=== PATIENT | male | born 1950 | race Caucasian/White ===

== ENCOUNTER 2022-05-18 21:38 | Emergency (ER) | payer OTHER ==
[~2022-05-18] VITALS: Ht 167.6 cm; Wt 70.8 kg
[~2022-05-18 21:38] MED LIST: AMOCLA875 PO; AMOX500 PO; ATOR40TA PO; Adult Low Dose81 MG PO; BP MED; CIPR500 PO; CLOP75 PO; DOXA2 PO; IBUP600 PO; LANS30EC PO; LISI20 PO; METO25ER PO; OMEP20ER PO; OXYACE5T PO; OXYB5 PO; SERT50 PO; TAMS.4ER PO; [UNRECOGNIZED DRUG - REMARK]
[2022-05-18 22:09] LABS: BASOPHILS ABSOLUTE AUTO 0.03 K/mm3 (0.00-0.23); BASOPHILS PERCENT AUTO 1 % (0-2); EOSINOPHILS ABSOLUTE AUTO 0.09 K/mm3 (0.00-0.68); EOSINOPHILS PERCENT AUTO 1 % (0-6); Hematocrit 40.9 % (37.0-53.0); Hemoglobin 13.8 g/dL (13.5-17.5); IMMATURE GRAN ABSOLUTE AUTO 0.01 K/mm3 (0.00-0.10); IMMATURE GRAN PERCENT AUTO 0 % (0-1); LYMPHOCYTES ABSOLUTE AUTO 1.71 K/mm3 (0.84-5.20); LYMPHOCYTES PERCENT AUTO 27 % (21-46); MONOCYTES ABSOLUTE AUTO 0.56 K/mm3 (0.16-1.47); MONOCYTES PERCENT AUTO 9 % (4-13); Mean Corpuscular HGB 33.8 pg (26.0-34.0); Mean Corpuscular HGB Conc 33.7 g/dL (31.5-36.5); Mean Corpuscular Volume 100 fL (80-100); Mean Platelet Volume 8.7 fL (9.1-12.4); NEUTROPHILS ABSOLUTE AUTO 4.03 K/mm3 (1.96-9.15); NEUTROPHILS PERCENT AUTO 63 % (41-73); Platelet Count 194 K/mm3 (150-400); Red Blood Cell Count 4.08 M/mm3 (4.30-5.90); White Blood Cell Count 6.43 K/mm3 (4.00-11.30)
[2022-05-18 22:29] LABS: Albumin, Blood 3.8 g/dL (3.4-5.0); Albumin/Globulin Ratio 1.2 (0.8-1.8); Bilirubin, Total 0.5 mg/dL (0.1-1.0); Bun/Creatinine Ratio 10.5 (12.0-20.0); Creatinine, Blood 0.67 mg/dL (0.60-1.20); Globulin, Blood 3.3 g/dL (2.2-4.0); Total Protein, Blood 7.1 g/dL (6.4-8.2)
== END 2022-05-18 23:55 | disposition home or self-care (01) ==
LOC: ER 21:38
PROVIDERS: Emergency Medicine
DX: R55 Syncope and collapse (principal); R07.89 Other chest pain; S09.90XA Unspecified injury of head, initial encounter; W19.XXXA Unspecified fall, initial encounter; I25.10 Atherosclerotic heart disease of native coronary artery without angina pectoris; I10 Essential (primary) hypertension; Z95.5 Presence of coronary angioplasty implant and graft; Z87.891 Personal history of nicotine dependence
CPT/HCPCS: 36415; 70450; 80053; 83880; 84484; 85025; 93005; 93010

== ENCOUNTER → 2022-11-03 | Outpatient (CLI) | payer OTHER | END | disposition home or self-care (01) | LOC: LAB SHORT 15:37 → LAB 15:37 | DX: L01.01 Non-bullous impetigo (principal) | CPT/HCPCS: 87070; 87205 ==

== ENCOUNTER → 2023-08-22 | Outpatient (CLI) | payer OTHER | END | disposition home or self-care (01) | LOC: LAB SHORT 14:42 → LAB 14:42 | DX: N39.0 Urinary tract infection, site not specified (principal) | CPT/HCPCS: 87077; 87086; 87186 ==

== ENCOUNTER → 2024-05-27 | Outpatient (CLI) | payer OTHER ==
[2024-05-27 14:50] LABS: BASOPHILS ABSOLUTE AUTO 0.01 K/mm3 (0.00-0.23); BASOPHILS PERCENT AUTO 0 % (0-2); EOSINOPHILS ABSOLUTE AUTO 0.09 K/mm3 (0.00-0.68); EOSINOPHILS PERCENT AUTO 1 % (0-6); Hematocrit 40.2 % (37.0-53.0); Hemoglobin 13.6 g/dL (13.5-17.5); IMMATURE GRAN ABSOLUTE AUTO 0.02 K/mm3 (0.00-0.10); IMMATURE GRAN PERCENT AUTO 0 % (0-1); LYMPHOCYTES ABSOLUTE AUTO 1.66 K/mm3 (0.84-5.20); LYMPHOCYTES PERCENT AUTO 21 % (21-46); MONOCYTES ABSOLUTE AUTO 0.62 K/mm3 (0.16-1.47); MONOCYTES PERCENT AUTO 8 % (4-13); Mean Corpuscular HGB 33.7 pg (26.0-34.0); Mean Corpuscular HGB Conc 33.8 g/dL (31.5-36.5); Mean Corpuscular Volume 100 fL (80-100); Mean Platelet Volume 9.4 fL (9.1-12.4); NEUTROPHILS ABSOLUTE AUTO 5.68 K/mm3 (1.96-9.15); NEUTROPHILS PERCENT AUTO 70 % (41-73); Platelet Count 241 K/mm3 (150-400); RDW Coefficient Variation 11.9 % (11.7-14.2); RDW Standard Deviation 43.8 fL (35.1-46.3); Red Blood Cell Count 4.03 M/mm3 (4.30-5.90); White Blood Cell Count 8.08 K/mm3 (4.00-11.30)
[2024-05-27 14:56] LABS: Albumin, Blood 3.6 g/dL (3.4-5.0); Bilirubin, Total 0.6 mg/dL (0.1-1.0); Calcium, Blood 8.9 mg/dL (8.5-10.1); Globulin, Blood 3.7 g/dL (2.2-4.0); Potassium, Blood 4.2 mmol/L (3.5-5.5); Total Protein, Blood 7.3 g/dL (6.4-8.2)
== END | disposition home or self-care (01) ==
LOC: LAB SHORT 14:42 → LAB 14:42
PROVIDERS: Emergency Medicine
DX: R10.84 Generalized abdominal pain (principal)
CPT/HCPCS: 80053; 83690; 85025

== ENCOUNTER 2025-03-03 17:35 | Emergency (ER) | payer OTHER ==
[~2025-03-03] VITALS: Ht 167.6 cm; Wt 72.1 kg
[2025-03-03] MEDS ORDERED: NS 1,000 ML IV SCH (17:50)
[2025-03-03 20:20] VITALS: BP 150/94
== END 2025-03-03 20:21 | disposition home or self-care (01) ==
LOC: ER 17:35
DX: E86.0 Dehydration (principal); Z79.899 Other long term (current) drug therapy; Z79.82 Long term (current) use of aspirin; Z79.2 Long term (current) use of antibiotics; I10 Essential (primary) hypertension; Z90.49 Acquired absence of other specified parts of digestive tract; Z87.891 Personal history of nicotine dependence; R41.0 Disorientation, unspecified; R33.9 Retention of urine, unspecified
CPT/HCPCS: 70450; 80053; 81015; 83735; 85025; 87086; 96360; 99285-25; J7030

== ENCOUNTER → 2025-03-03 | Outpatient (CLI) | payer OTHER ==
[2025-03-03 16:42] LABS: BASOPHILS ABSOLUTE AUTO 0.01 K/mm3 (0.00-0.23); BASOPHILS PERCENT AUTO 0 % (0-2); EOSINOPHILS ABSOLUTE AUTO 0.12 K/mm3 (0.00-0.68); EOSINOPHILS PERCENT AUTO 3 % (0-6); Hematocrit 36.2 % (37.0-53.0); Hemoglobin 12.6 g/dL (13.5-17.5); IMMATURE GRAN ABSOLUTE AUTO 0.01 K/mm3 (0.00-0.10); IMMATURE GRAN PERCENT AUTO 0 % (0-1); LYMPHOCYTES ABSOLUTE AUTO 1.41 K/mm3 (0.84-5.20); LYMPHOCYTES PERCENT AUTO 30 % (21-46); MONOCYTES ABSOLUTE AUTO 0.51 K/mm3 (0.16-1.47); MONOCYTES PERCENT AUTO 11 % (4-13); Mean Corpuscular HGB Conc 34.8 g/dL (31.5-36.5); Mean Corpuscular Volume 100 fL (80-100); NEUTROPHILS ABSOLUTE AUTO 2.60 K/mm3 (1.96-9.15); NEUTROPHILS PERCENT AUTO 56 % (41-73); NRBC ABSOLUTE 0.00 K/mm3 (0.00-0.02); NRBC Auto 0.0 /100 WBC (0.0-0.2); Platelet Count 215 K/mm3 (150-400); RDW Coefficient Variation 12.4 % (11.7-14.2); RDW Standard Deviation 46.2 fL (35.1-46.3)
[2025-03-03 16:51] LABS: Alanine Aminotransfer (ALT/SGP 27.0 U/L (12-78); Albumin, Blood 4.0 g/dL (3.4-5.0); Albumin/Globulin Ratio 1.3 (0.8-1.8); Anion Gap 10.0 mmol/L (3-11); Aspartate Aminotrans (AST/SGOT 21.0 U/L (12-37); Bilirubin, Total 0.5 mg/dL (0.1-1.0); Blood Urea Nitrogen 3.0 mg/dL (8-24); CO2, Blood 30.0 mmol/L (21-32); Calcium, Blood 9.0 mg/dL (8.5-10.1); Chloride, Blood 96.0 mmol/L (98-108); Creatinine, Blood 0.67 mg/dL (0.60-1.20); Globulin, Blood 3.0 g/dL (2.2-4.0); Glucose, Blood 98.0 mg/dL (70-99); Magnesium, Blood 2.2 mg/dL (1.6-2.4); Potassium, Blood 4.1 mmol/L (3.5-5.5); Sodium, Blood 132.0 mmol/L (136-145); Total Protein, Blood 7.0 g/dL (6.4-8.2)
[2025-03-03 17:08] LABS: Source, Urine Clean Catch
[2025-03-03 17:16] LABS: Red Blood Cells, Urine Not Seen /hpf (0-2); White Blood Cells, Urine Not Seen /hpf (0-5)
== END ==
LOC: LAB SHORT 16:36 → LAB 16:36
PROVIDERS: Emergency Medicine
DX: R41.0 Disorientation, unspecified (principal); R33.9 Retention of urine, unspecified
CPT/HCPCS: 80053; 81015; 83735; 85025; 87086